=== PATIENT | male | born 1980 | race Caucasian/White ===

== ENCOUNTER 2020-06-23 01:08 | Emergency (ER) | payer OTHER ==
[~2020-06-23] VITALS: Ht 172.7 cm; Wt 104.4 kg
[2020-06-23] MEDS ORDERED: NORVASC 2.5 MG2.5 M1 PO (01:29)
[2020-06-23] MEDS ORDERED: LISINOPRIL10 MG PO (01:30)
[2020-06-23] MEDS ORDERED: HYDROCHLOROTHIA25 M2 PO (02:29)
[2020-06-23] MEDS ORDERED: HYDRALAZINE 10M10 MG PO ×2 (02:29→02:55)
[2020-06-23] MEDS ORDERED: MEDROLDOSEPACK PO (02:31)
[2020-06-23 02:59] VITALS: BP 137/87
== END 2020-06-23 02:59 | disposition home or self-care (01) ==
LOC: M.ERS 01:08
DX: I10 Essential (primary) hypertension (principal); R22.0 Localized swelling, mass and lump, head; T78.40XA Allergy, unspecified, initial encounter; X58.XXXA Exposure to other specified factors, initial encounter